=== PATIENT | female | born 1970 | race African-American/Black ===

== ENCOUNTER 2016-10-19 08:05 | Emergency (ER) | payer OTHER ==
[~2016-10-19] VITALS: Ht 167.6 cm; Wt 73.0 kg
[2016-10-19] MEDS ORDERED: SODIUM CHLORIDE 0.9% 1,000 ML IV ONE (09:45)
[2016-10-19] MEDS ORDERED: ONDANSETRON HCL 4MG/2ML VIAL IV ONE (09:45)
[2016-10-19] MEDS ORDERED: FAMOTIDINE 20MG/2ML VIAL IV ONE (09:45)
[2016-10-19 10:07] LABS: HEMATOCRIT. 24.5 % (36.0-48.0); HEMOGLOBIN. 7.8 g/dL (12.0-16.0); MEAN CORPUSCULAR HEMOGLOBIN 24.9 pg (28.0-32.0); PLATELET 209 x1000/uL (130-400); RED BLOOD CELL COUNT 3.14 mill/uL (4.2-5.4); RED CELL DISTRIBUTION WIDTH 20.3 % (11.6-14.6)
[2016-10-19 10:11] LABS: CHLORIDE 109 mEq/L (98-107)
[2016-10-19 10:18] LABS: CLARITY URINE CLEAR (CLEAR); COLOR URINE YELLOW (YELLOW); GLUCOSE URINE TRACE (NEGATIVE); KETONES URINE TRACE (NEGATIVE); LEUKOCYTE ESTERASE URINE NEGATIVE (NEGATIVE); NITRITE URINE NEGATIVE (NEGATIVE); OCCULT BLOOD URINE 3+ (NEGATIVE); PROTEIN URINE NEGATIVE (NEGATIVE); SPECIFIC GRAVITY URINE 1.033 (1.005-1.030)
[2016-10-19 10:19] LABS: CARBON DIOXIDE 30 mEq/L (21-32)
[2016-10-19 10:45] LABS: PLATELET ESTIMATE NORMAL
[2016-10-19 12:56] VITALS: BP 95/55
[2016-10-19] MEDS ORDERED: ACETAMINOPHEN 325MG TABLET PO ONE (13:00)
[2016-10-19] MEDS ORDERED: SODIUM CHLORIDE 0.9% 10ML VIAL ONE (13:47)
[2016-10-19] MEDS ORDERED: IOHEXOL-300 100 ML BOTTLE ONE (13:47)
== END 2016-10-19 14:19 | disposition home or self-care (01) ==
LOC: ER 09:10
DX: D72.819 Decreased white blood cell count, unspecified (principal); E83.51 Hypocalcemia; N39.0 Urinary tract infection, site not specified; N64.4 Mastodynia; F12.10 Cannabis abuse, uncomplicated; Z98.84 Bariatric surgery status; Z88.5 Allergy status to narcotic agent
CPT/HCPCS: 36415; 71010; 74177; 76705; 80053; 81001; 81025; 82962; 83690; 85007; 85027; 96361; 96374; 96375; 99285; A4216; J2405; J3490; J7030; Q9967; Z7610

== ENCOUNTER 2017-11-23 19:48 | Emergency (ER) | payer OTHER ==
[~2017-11-23] VITALS: Ht 162.6 cm; Wt 76.0 kg
[2017-11-23] MEDS ORDERED: SODIUM CHLORIDE 0.9% 1,000 ML IV ONE (20:25)
[2017-11-23] MEDS ORDERED: DEXTROSE 50% WATER 50ML SYRINGE IV ONE ×2 (20:30→20:33)
[2017-11-23 20:45] LABS: BASOPHILS % 0.6 % (0.0-2.0); EOSINOPHILS % 1.4 % (0.0-5.0); HEMATOCRIT. 31.1 % (36.0-48.0); HEMOGLOBIN. 9.8 g/dL (12.0-16.0); LYMPHOCYTES % 19.8 % (20.0-50.0); MEAN CORPUSCULAR HEMOGLOBIN 25.2 pg (28.0-32.0); MEAN CORPUSCULAR VOLUME 80.2 fL (81.0-99.0); MONOCYTES % 9.2 % (2.0-8.0); PLATELET 260 x1000/uL (130-400); RED BLOOD CELL COUNT 3.87 mill/uL (4.2-5.4); RED CELL DISTRIBUTION WIDTH 24.2 % (11.6-14.6)
[2017-11-23 20:49] LABS: CHLORIDE 105 mEq/L (98-107)
[2017-11-23 20:53] LABS: ETHANOL BLOOD < 10 mg/dL
[2017-11-23 20:57] LABS: CREATINE KINASE 144 IU/L (26-192)
[2017-11-23 20:59] LABS: CARBAMAZEPINE < 0.5 ug/mL (4-12); VALPROIC ACID < 3.0 ug/mL (50-100)
[2017-11-23 21:05] LABS: PHENOBARBITAL < 2.1 ug/mL (15.0-40.0)
[2017-11-23 21:06] LABS: PLATELET ESTIMATE NORMAL
[2017-11-23] MEDS ORDERED: KETOROLAC 30MG/ML VIAL IV ONE (22:00)
[2017-11-23 22:15] LABS: HCG SCREEN NEGATIVE
[2017-11-23 23:01] LABS: CLARITY URINE CLEAR (CLEAR); COLOR URINE YELLOW (YELLOW); KETONES URINE TRACE (NEGATIVE); LEUKOCYTE ESTERASE URINE NEGATIVE (NEGATIVE); NITRITE URINE NEGATIVE (NEGATIVE); OCCULT BLOOD URINE NEGATIVE (NEGATIVE); PROTEIN URINE 2+ (NEGATIVE); SPECIFIC GRAVITY URINE 1.025 (1.005-1.030)
[2017-11-23 23:12] LABS: *AMPHETAMINES SCREEN URINE NEGATIVE (NEGATIVE); *BARBITURATES SCREEN URINE NEGATIVE (NEGATIVE); *BENZODIAZEPINES SCREEN URINE NEGATIVE (NEGATIVE); *COCAINE SCREEN URINE NEGATIVE (NEGATIVE); METHADONE URINE SCREEN NEGATIVE (NEGATIVE); OPIATES URINE SCREEN NEGATIVE (NEGATIVE)
[2017-11-23 23:13] LABS: PHENCYCLIDINE URINE SCREEN NEGATIVE (NEGATIVE)
[2017-11-23 23:17] LABS: CANNABINOID URINE SCREEN PRESUMTIVE POSITIVE (NEGATIVE)
[2017-11-23 23:42] VITALS: BP 113/69
== END 2017-11-23 23:42 | disposition home or self-care (01) ==
LOC: ER 20:12
DX: S09.8XXA Other specified injuries of head, initial encounter (principal); R56.9 Unspecified convulsions; E11.649 Type 2 diabetes mellitus with hypoglycemia without coma; R80.9 Proteinuria, unspecified; D64.9 Anemia, unspecified; Z98.84 Bariatric surgery status; X58.XXXA Exposure to other specified factors, initial encounter; Y93.89 Activity, other specified; Y92.89 Other specified places as the place of occurrence of the external cause; Y99.8 Other external cause status
CPT/HCPCS: 36415; 70450; 80053; 80156; 80165; 80184; 80185; 80305; 81003; 82550; 82962; 84443; 84703; 85025; 93005; 96361; 96374; 96375; 99285; G0482; J1885; J7030; Z7610

== ENCOUNTER 2018-06-19 04:33 | Emergency (ER) | payer OTHER ==
[~2018-06-19] VITALS: Ht 165.1 cm; Wt 79.0 kg
[2018-06-19 04:37] VITALS: BP 122/64
== END 2018-06-19 08:04 | disposition left against medical advice (07) ==
LOC: ER 04:55
DX: Z53.21 Procedure and treatment not carried out due to patient leaving prior to being seen by health care provider (principal)

== ENCOUNTER 2020-03-30 18:42 | Emergency (ER) | payer OTHER ==
[~2020-03-30] VITALS: Ht 162.6 cm; Wt 73.0 kg
[2020-03-30 19:30] LABS: MEAN CORPUSCULAR HEMOGLOBIN 16.7 pg (28.0-32.0); MEAN CORPUSCULAR VOLUME 58.5 fL (81.0-99.0); PLATELET 276 x1000/uL (130-400); RED BLOOD CELL COUNT 3.56 mill/uL (4.2-5.4); RED CELL DISTRIBUTION WIDTH 22.7 % (11.6-14.6)
[2020-03-30 19:39] LABS: CHLORIDE 108 mEq/L (98-107)
[2020-03-30 19:42] LABS: HEMATOCRIT 20.8 % (36.0-48.0)
[2020-03-30 23:14] LABS: HCG SCREEN NEGATIVE
[2020-03-31 01:29] LABS: HEMATOCRIT 21.9 % (36.0-48.0); MEAN CORPUSCULAR HEMOGLOBIN 18.2 pg (28.0-32.0); MEAN CORPUSCULAR VOLUME 60.8 fL (81.0-99.0); PLATELET 265 x1000/uL (130-400); RED CELL DISTRIBUTION WIDTH 25.7 % (11.6-14.6)
[2020-03-31 01:32] LABS: HEMOGLOBIN 6.6 g/dL (12.0-16.0)
[2020-03-31 06:13] VITALS: BP 104/61
== END 2020-03-31 06:13 | disposition home or self-care (01) ==
LOC: ER 18:42 → CANBEDREQ 03-31 06:01 → ER 03-31 06:13
DX: D50.8 Other iron deficiency anemias (principal); I49.9 Cardiac arrhythmia, unspecified; E16.2 Hypoglycemia, unspecified; Z98.890 Other specified postprocedural states; Z88.6 Allergy status to analgesic agent
CPT/HCPCS: 36415; 80048; 84703; 85027; 86850; 86900; 86920; 93005; 99291; P9016

== ENCOUNTER 2020-09-03 15:32 | Emergency (ER) | payer OTHER ==
[~2020-09-03] VITALS: Ht 162.6 cm; Wt 77.0 kg
[2020-09-03 15:35] VITALS: BP 108/54
[2020-09-03] MEDS ORDERED: ACET-2708 PO (16:52)
== END 2020-09-03 18:52 | disposition home or self-care (01) ==
LOC: ER 15:32
DX: S92.911A Unspecified fracture of right toe(s), initial encounter for closed fracture (principal); R73.9 Hyperglycemia, unspecified; Z88.5 Allergy status to narcotic agent; Z98.84 Bariatric surgery status; Z86.59 Personal history of other mental and behavioral disorders; W18.30XA Fall on same level, unspecified, initial encounter; Y93.01 Activity, walking, marching and hiking; Y92.89 Other specified places as the place of occurrence of the external cause; Y99.8 Other external cause status
CPT/HCPCS: 73630; 99283

== ENCOUNTER 2020-12-27 11:24 | Emergency (ER) | payer OTHER ==
[~2020-12-27] VITALS: Ht 165.1 cm; Wt 75.0 kg
[~2020-12-27 11:24] MED LIST: ACET-2708 PO
[2020-12-27] MEDS ORDERED: IBUPROFEN 600MG TABLET PO ONE (12:30)
[2020-12-27 12:33] VITALS: BP 123/72
[2020-12-27] MEDS ORDERED: OXYM30SP26 BOTHNSTRLS (12:46)
[2020-12-27] MEDS ORDERED: PSEU-207 MT (12:46)
== END 2020-12-27 12:59 | disposition home or self-care (01) ==
LOC: ER 11:24
DX: B34.9 Viral infection, unspecified (principal); R09.81 Nasal congestion; E11.9 Type 2 diabetes mellitus without complications; G40.909 Epilepsy, unspecified, not intractable, without status epilepticus; Z98.84 Bariatric surgery status; Z88.5 Allergy status to narcotic agent
CPT/HCPCS: 82962; 99282

== ENCOUNTER 2022-05-08 10:52 | Emergency (ER) | payer OTHER ==
[~2022-05-08] VITALS: Ht 165.1 cm; Wt 75.0 kg
[~2022-05-08 10:52] MED LIST changes: +OXYM30SP26 BOTHNSTRLS; +PSEU-207 MT
[2022-05-08 10:54] VITALS: BP 110/91
[2022-05-08] MEDS ORDERED: IBUPROFEN 600MG TABLET PO ONE (13:45)
[2022-05-08] MEDS ORDERED: IBUP-2029 MT (13:45)
== END 2022-05-08 14:08 | disposition home or self-care (01) ==
LOC: ER 10:52
DX: S99.821A Other specified injuries of right foot, initial encounter (principal); Y93.01 Activity, walking, marching and hiking; Y92.018 Other place in single-family (private) house as the place of occurrence of the external cause
CPT/HCPCS: 73630; 99283

== ENCOUNTER 2025-02-13 15:42 | Emergency (ER) | payer OTHER ==
[~2025-02-13] VITALS: Ht 172.7 cm; Wt 68.0 kg
[~2025-02-13 15:42] MED LIST changes: +IBUP-1455 MT; -PSEU-207 MT; +PSEU-307 MT
[2025-02-13 15:45] VITALS: O2SAT 100
[2025-02-13 16:09] LABS: BASOPHILS % 0.4 % (0.0-2.0); EOSINOPHILS % 2.0 % (0.0-5.0); HEMATOCRIT. 36.4 % (36.0-48.0); HEMOGLOBIN. 11.7 g/dL (12.0-16.0); LYMPHOCYTES % 36.2 % (20.0-50.0); MEAN PLATELET VOLUME 8.0 fl (7.4-10.4); MONOCYTES % 6.3 % (2.0-8.0); NEUTROPHILS % 55.1 % (40.0-76.0); PLATELET 136 x1000/uL (130-400); RED BLOOD CELL COUNT 3.77 mill/uL (4.2-5.4); RED CELL DISTRIBUTION WIDTH 18.0 % (11.6-14.6)
[2025-02-13 16:20] LABS: HCG SCREEN NEGATIVE
[2025-02-13 16:21] LABS: CREATININE 0.9 mg/dL (0.6-1.0)
[2025-02-13 16:22] LABS: UREA NITROGEN BLOOD 22 mg/dL (9-23)
[2025-02-13 16:23] LABS: ASPARTATE AMINOTRANSFERASE 40 IU/L (<34)
[2025-02-13 16:24] LABS: BILIRUBIN DIRECT 0.3 mg/dL (<=3.0); BILIRUBIN TOTAL 0.7 mg/dL (0.1-1.0); PROTEIN TOTAL 7.0 g/dL (6.0-8.3)
[2025-02-13 16:46] VITALS: BP 106/72; PULSE 105; RESP 15; TEMP 36.9; O2SAT 100
[2025-02-13] MEDS ORDERED: SODIUM CHLORIDE 0.9% 1,000 ML IV ONE (17:15)
== END 2025-02-13 18:06 | disposition left against medical advice (07) ==
LOC: ER 15:42
DX: R56.9 Unspecified convulsions (principal); Z98.84 Bariatric surgery status; Z88.5 Allergy status to narcotic agent
CPT/HCPCS: 36415; 80048; 80076; 80320; 84703; 85025; 93005; 99284; G0480